=== PATIENT | female | born 1940 | race Caucasian/White ===

== ENCOUNTER 2025-07-11 15:54 | Inpatient (IN) ==
[2025-07-11] MEDS ORDERED: PROTONIX INJ 40 MG VIAL ONE (16:08)
[2025-07-11] MEDS ORDERED: ZOFRAN INJ 4 MG VIAL ONE (16:08)
[2025-07-11] MEDS: NS 1,000 ML IV 1,000 ML IV ONE ×3 (16:09→19:31)
[2025-07-11] MEDS: ZOFRAN INJ 4 MG VIAL IVP ONE (16:10)
[2025-07-11] MEDS: PROTONIX INJ 40 MG VIAL IVP ONE (16:11)
[2025-07-11 16:31] LABS: MEAN PLATELET VOLUME 7.5 fL (7.4-11.0); RED CELL DISTRIBUTION WIDTH 12.8 % (11.6-16.5)
[2025-07-11 16:40] LABS: COR NA(FOR HYPERGLY) 142 mmol/L (136-145); CREATININE 1.02 mg/dL (0.55-1.02); eGFR NON BLACK RACES 55 (>60)
--- NOTE | 2025-07-11 16:40 | DR.GENAD ---
HPI Time Seen Time Seen by Provider: 07/11/25 16:38 PCP Primary Care Physician: JUANIS URENA Complaint/Symptoms Chief Complaint Doctors Comments: To family members they went to see her this morning about 6:30 in the morningHere for her medications and they found her in the bathroom vomiting and diarrhea with some epigastric pain.This patient has a history of dementia but refuses to stay anywhere besides by herself. Chief Complaint:: Family member states they went there around 0630 this morning to give her, her medications and found her in the bathroom vomiting and diarrhea along with epigastric pain. Patient has dementia and lives alone unsure of what time it started. COVID-19 Coronavirus risk:travel/contact w/high risk person: No Has patient experienced Coronavirus symptoms: No Source History Provided: Patient Mode of Arrival Mode of Arrival: Wheelchair Timing Onset of Chief Complaint: 07/11/25 PMH PMH Past Medical History: Yes Past Medical History: Dementia and Hypertension Past Surgical History: Yes Surgical History: Tonsillectomy Family History History of Family Medical Conditions: No Social History Does patient currently use any type of tobacco product: No Have you used tobacco products in the last 12 months: No Type of Tobacco Use: None Does any household member use tobacco: No Alcohol Use: None Do you use any recreational Drugs:: No Lives With: Alone Lives Where: Home Travel Risk Coronavirus risk:travel/contact w/high risk person: No Has patient experienced Coronavirus symptoms: No Infectious screening In the last 2 months have you had wt loss of >10#?: NO Have you had fever, night sweats or hemotysis?: No Have you traveled outside the country in the last 6 months?: No Isolation: Standard ROS Review of Systems Constitutional: Weakness and Other (nausea and vomiting and mid lower abdominal pain.) Eyes: No Symptoms Reported ENTM: No Symptoms Reported Respiratoy: No Symptoms Reported Cardiovascular: No Symptoms Reported Gastrointestinal/Abdominal: Abdominal Pain, Nausea and Vomiting Genitourinary: Other (suprapubic abdominal pain) Neurological: No Symptoms Reported Musculoskeletal: No Symptoms Reported Integumentary: No Symptoms Reported Hematologic/Lymphatic: No Symptoms Reported Endocrine: No Symptoms Reported Psychiatric: No Symptoms Reported All Other Systems: Reviewed and Negative PE Vital Signs Vitals: Vital Signs Temperature 98.0 F Pulse Rate 97 Pulse Rate 101 Pulse Rate 96 Pulse Rate 92 Pulse Rate 100 Pulse Rate 95 Pulse Rate 108 Pulse Rate 96 Pulse Rate 89 Pulse Rate 100 Pulse Rate 89 Pulse Rate 90 Pulse Rate 88 Pulse Rate 87 Pulse Rate 77 Pulse Rate 96 Respiratory Rate 24 Respiratory Rate 23 Respiratory Rate 23 Respiratory Rate 25 Respiratory Rate 24 Respiratory Rate 22 Respiratory Rate 32 Respiratory Rate 25 Respiratory Rate 22 Respiratory Rate 26 Respiratory Rate 16 Blood Pressure 177/81 Blood Pressure 187/81 Blood Pressure 199/77 Blood Pressure 161/72 Blood Pressure 167/75 Blood Pressure 190/78 Blood Pressure 173/71 Blood Pressure 171/107 Blood Pressure 175/79 O2 Sat by Pulse Oximetry 97 O2 Sat by Pulse Oximetry 98 O2 Sat by Pulse Oximetry 97 O2 Sat by Pulse Oximetry 98 O2 Sat by Pulse Oximetry 98 O2 Sat by Pulse Oximetry 99 O2 Sat by Pulse Oximetry 98 O2 Sat by Pulse Oximetry 97 O2 Sat by Pulse Oximetry 92 O2 Sat by Pulse Oximetry 97 O2 Sat by Pulse Oximetry 98 O2 Sat by Pulse Oximetry 99 O2 Sat by Pulse Oximetry 98 O2 Sat by Pulse Oximetry 98 O2 Sat by Pulse Oximetry 99 O2 Sat by Pulse Oximetry 96 O2 Sat by Pulse Oximetry 97 General Limitations: Physical Limitation (unstable gait due to abdominal pain) General Appearance: In Distress (moderate distress) Head Head Exam: Normal Inspection, Atraumatic and Normocephalic Eyes Eye exam: Normal Appearance, PERRL and EOMI ENT ENT Exam: Normal Exam, Normal Oropharynx and Normal External Ear Exam External Ear Exam: Normal External Inspection TM/Canal Exam: Bilateral: Normal Nose Exam: Normal Nose Exam Mouth Exam: Normal Inspection Throat Exam: Normal Inspection Neck Neck Exam: Normal Inspection Chest Chest Inspection: Normal Inspection and Symmetric Chest Wall Rise Respiratory Respiratory Exam: Normal Lung Sounds Bilat Respiratory Exam: Bilateral: Clear to Auscultation Cardiovascular Cardiovascular Exam: Regular Rate and Normal Rhythm Abdominal Exam Abdominal Exam: Normal Inspection, Normal Bowel Sounds, Soft and Tenderness (suprapubic area) Abdominal Tenderness: Suprapubic Extremities Extremities Exam: Normal Inspection Back Back Exam: Normal Inspection Neurologic Neurological Exam: Alert, Oriented X3 and CN II-XII Intact Psychiatric Psychiatric Exam: Normal Affect Skin Skin Exam: Warm, Dry and Intact MDM Differential Diagnosis Differential Diagnosis: uti,gastritis,cholelithiasis,pancreatitis,gerd COURSE Treatment Treatment: Patient remained relatively stable during ER evaluation. 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 Serrano at 1905 and he is able to put the patient in for further evaluation make her n.p.o. given fluids and she does have a urinary tract infection so we did give her a levofloxacin 500 mg IV and will be given levofloxacin 500 mg IV every 24. Further antibiotic therapy as per Dr. Henry if he wants to cover for any of the intra-abdominal pathology.Patient is allergic to penicillins.This patient was given 1 g of Tylenol IV for pain the family members did not want her to get any of the narcotics that she they stated that she does not do well with that.Case management was notified and they did set the patient up with put in as an inpatient. [facility] Labs Reviewed Laboratory Results Reviewed?: Yes 07/11/25 16:03 07/11/25 16:03 Laboratory: WBC 14.3 X10^3/uL (3.6-10.0) H 07/11/25 16:03 RBC 4.14 X10^6/uL (3.5-5.4) 07/11/25 16:03 Hgb 13.1 g/dL (12.0-16.0) 07/11/25 16:03 Hct 38.3 % (36.0-47.0) 07/11/25 16:03 MCV 92.6 fL (80.0-100.0) 07/11/25 16:03 MCH 31.8 pg (27.0-34.0) 07/11/25 16:03 MCHC 34.3 g/dL (33.0-35.0) 07/11/25 16:03 RDW 12.8 % (11.6-16.5) 07/11/25 16:03 Plt Count 351 X10^3/uL (150.0-450.0) 07/11/25 16:03 Plt Count Comment Adequate (ADEQUATE) 07/11/25 16:03 MPV 7.5 fL (7.4-11.0) 07/11/25 16:03 Neut % (Auto) 92.6 % (42.0-75.0) H 07/11/25 16:03 Lymph % (Auto) 2.5 % (21.0-51.0) L 07/11/25 16:03 Sullivan % (Auto) 4.6 % (0.0-13.0) 07/11/25 16:03 Eos % (Auto) 0.0 % (0.9-2.9) L 07/11/25 16:03 Baso % (Auto) 0.3 % (0.2-1.0) 07/11/25 16:03 Neut # (Auto) 13.2 x10^3/uL (2.2-4.8) H 07/11/25 16:03 Lymph # (Auto) 0.4 X10^3/uL (1.3-2.9) L 07/11/25 16:03 Sullivan # (Auto) 0.7 x10^3/uL (0.3-0.8) 07/11/25 16:03 Eos # (Auto) 0.0 x10^3/uL (0.0-0.2) 07/11/25 16:03 Baso # (Auto) 0.0 X10^3/uL (0.0-0.1) 07/11/25 16:03 Absolute Nucleated RBC 0.0 /100WBC 07/11/25 16:03 Total Counted 100 07/11/25 16:03 Neutrophils % (Manual) 95 % (39-76) H 07/11/25 16:03 Lymphocytes % (Manual) 2 % (13-43) L 07/11/25 16:03 Monocytes % (Manual) 3 % (4-9) L 07/11/25 16:03 Plt Morphology Comment Normal (NORMAL) 07/11/25 16:03 RBC Morphology Normal (NORMAL) 07/11/25 16:03 Sodium 139 mmol/L (136-145) 07/11/25 16:03 Corrected Sodium 142 mmol/L (136-145) 07/11/25 16:03 Potassium 4.2 mmol/L (3.5-5.1) 07/11/25 16:03 Chloride 101 mmol/L (98-107) 07/11/25 16:03 Carbon Dioxide 28.1 mmol/L (21-32) 07/11/25 16:03 BUN 45 mg/dL (7-18) H 07/11/25 16:03 Creatinine 1.02 mg/dL (0.55-1.02) 07/11/25 16:03 Est GFR (MDRD) Af Amer > 60 (>60) 07/11/25 16:03 Est GFR (MDRD) Non-Af 55 (>60) L 07/11/25 16:03 Glucose 210 mg/dL (65-99) H 07/11/25 16:03 Calcium 9.1 mg/dL (8.5-10.1) 07/11/25 16:03 Corrected Calcium TNP 07/11/25 16:03 Total Bilirubin 0.50 mg/dL (0.2-1.0) 07/11/25 16:03 AST 20 Units/L (15-37) 07/11/25 16:03 ALT 18 Units/L (12-78) 07/11/25 16:03 Alkaline Phosphatase 58 Units/L (46-116) 07/11/25 16:03 Total Protein 7.8 g/dL (6.4-8.2) 07/11/25 16:03 Albumin 4.2 g/dL (3.4-5.0) 07/11/25 16:03 Globulin 3.6 g/dL (2.5-4.5) 07/11/25 16:03 Albumin/Globulin Ratio 1.2 Ratio (1.1-2.1) 07/11/25 16:03 Amylase 1902 Units/L (25-115) H 07/11/25 16:03 Lipase 3479 Units/L (16-77) H 07/11/25 16:03 Specimen Type Catherized urine 07/11/25 18:10 Urine Color Yellow (YELLOW) 07/11/25 18:10 Urine Appearance Hazy (CLEAR) 07/11/25 18:10 Urine pH 6.0 (5.0 - 8.0) 07/11/25 18:10 Ur Specific Banks 1.025 (1.000-1.030) 07/11/25 18:10 Urine Protein 2+ (NEGATIVE) 07/11/25 18:10 Urine Glucose (UA) Negative (NEGATIVE) 07/11/25 18:10 Urine Ketones 1+ (NEGATIVE) 07/11/25 18:10 Urine Blood 3+ (NEGATIVE) 07/11/25 18:10 Urine Nitrite Negative (NEGATIVE) 07/11/25 18:10 Urine Bilirubin Negative (NEGATIVE) 07/11/25 18:10 Urine Urobilinogen Normal (NORMAL) 07/11/25 18:10 Ur Leukocyte Esterase 2+ (NEGATIVE) 07/11/25 18:10 Urine RBC 0-2 /HPF (0-3) 07/11/25 18:10 Urine WBC 10-20 /HPF (0-5) A 07/11/25 18:10 Ur Squamous Epith Cells Negative /HPF (NEGATIVE) 07/11/25 18:10 Ur Renal Epithelial Cell Few /HPF (NEGATIVE) 07/11/25 18:10 Amorphous Sediment 2+ /HPF (NEGATIVE) 07/11/25 18:10 Urine Bacteria 1+ /HPF (NEGATIVE) 07/11/25 18:10 Coarse Granular Casts Few /HPF (NEGATIVE) 07/11/25 18:10 Ur Culture Indicated? Yes/culture set up 07/11/25 18:10 Opioid Opioid Risk Tool Age (Luis box if 16-45): No History of Preadolescent Sexual Abuse: No Total: 0 Total Score Risk Category: Low Risk Copyright: Erlin ALSTON predicting aberrant behaviors Discharge Plan Diagnosis Discharge Problem: Cholelithiasis, Pancreatitis, UTI (urinary tract infection), Constipation Discharge Plan Patient Disposition: ADMITTED INPATIENT Condition: Stable Prescriptions: No Action donepezil 5 mg tablet 5 mg PO QDAY meloxicam 15 mg tablet 15 mg PO QDAY lisinopril 10 mg tablet 10 mg PO BID Health Concerns: Post Hospitalization: new medications and changes needed to prevent readmission or further decline. Pt educated and given instructions on all concerns. Plan of Treatment: Continue with present treatment and follow up plan. Pt is to keep follow up appointment as instructed and take medications as ordered. Orders to Discharge Patient Discharge Orders: Transfer (Routine); Ordered 07/11/25 Ordered By: Fuad Brown Follow ups/Referrals Follow ups/Referrals: ,Misc [Primary Care Provider] - 3 days Instructions Stand Alone Forms: Find Help Web Site, Post Hospital Follow Up Care Print Language: PORTUGUESE
[2025-07-11 16:45] LABS: PLATELET MORPHOLOGY COMMENT NORMAL (NORMAL)
[2025-07-11 18:31] LABS: BLOOD/HEMOGLOBIN,URINE 3+ (NEGATIVE); LEUKOCYTE ESTERASE ,URINE 2+ (NEGATIVE); NITRITES,URINE NEGATIVE (NEGATIVE)
--- NOTE | 2025-07-11 18:31 | CT ---
EXAM: CT ABDOMEN AND PELVIS WITHOUT INTRAVENOUS CONTRAST HISTORY: Abdominal pain. TECHNIQUE: Spiral axial CT images are obtained through the abdomen and pelvis without the administration of oral contrast and intravenous contrast. Additional coronal and sagittal reformatted images are reconstructed. COMPARISON: None available. FINDINGS: BILIARY SYSTEM: There is cholelithiasis, consistent with sequela of chronic cholecystitis. Consider follow-up evaluation with HIDA scan to rule out cystic duct obstruction and acute cholecystitis as clinically warranted. PANCREAS: There is evidence for acute pancreatitis (cannot rule out gallstone pancreatitis) marked by pancreatic enlargement and peripancreatic streaky inflammatory change. No evidence for pancreatic pseudocyst formation is seen. There is a contiguous peripancreatic interstitial fluid tracking along the posterior peritoneal reflections and paracolic gutters towards the lower abdomen (left greater than right), in keeping with sequela of acute pancreatitis. There is contiguous small perihepatic and perisplenic ascites. There is severe edema of the transverse mesocolon (contiguous with the inferior margin of the pancreas) in keeping with secondary postinflammatory change/edema. GASTROINTESTINAL TRACT: There is thickened appearance of the gastric mucosa and duodenal sweep in keeping with secondary gastroduodenitis. Colonic diverticulosis, without evidence for diverticulitis. No evidence for hiatal hernia, bowel herniation, bowel obstruction, or colitis. A normal-appearing appendix is seen. A massive amount of fecal material is seen within and up to 8.2 cm dilated rectum consistent with constipation and fecal retention. Axial image 77; sagittal image 29. GENITOURINARY SYSTEM: The kidneys are unremarkable. There is no ureteral calculus or stigmata of obstructive uropathy. The urinary bladder is grossly unremarkable for a non-dedicated exam. REPRODUCTIVE SYSTEM: The uterus and adnexa appear grossly unremarkable for a CT scan. Consider follow-up dedicated imaging as clinically warranted. VASCULAR: There is severe aortoiliac atherosclerotic disease, without aneurysm formation or dissection. CT ABDOMEN: The liver, spleen, adrenal glands, and inferior vena cava are within normal limits for a CT scan. There is no intra-abdominal or retroperitoneal lymphadenopathy, or free air seen. No abdominal herniation is noted. CT PELVIS: No pelvic sidewall or inguinal lymphadenopathy is seen. No inguinal herniation is noted. No free air is seen. A small amount of free fluid is seen in the pelvis, presumed sequela of pancreatitis. BONES AND JOINTS: Severe multilevel DDD is seen in the distal thoracic and lumbar spine. L2/3: Diffuse posterior degenerative disc bulge (projecting 5.2 mm AP) encroaching upon the anterior spinal canal and lateral recesses with potential for L3 nerve root impingements. L3/4: Severe DDD with prominent posterior disc bulge/HNP (projecting 1.2 cm AP and encroaching upon the anterior spinal canal and lateral recesses), and together with severe bilateral hypertrophic facet joint DJD contributing to severe lateral recess, spinal canal, and neuroforaminal stenoses with L4 and L3 nerve root impingements. Sagittal image 34; axial image 46. L4/5: Severe DDD marked by severe disc space narrowing, endplate sclerosis, vacuum disc phenomenon, and chronic appearing anterior disc bulge/HNP (projecting 1.5 cm AP and encroaching upon the prevertebral soft tissues); approximately 11.9 mm (grade 1) spondylolisthesis, contributing to markedly severe spinal canal and neuroforaminal stenosis with severe impingements of the L5 and L4 nerve roots. Sagittal image 27-39; axial image 50-54. LUNG BASES: There is severe diffuse coronary atherosclerosis. A trace pericardial effusion is seen. Cardiomegaly and diffusely prominent pulmonary vascularity and interstitial markings, consistent with mild CHF or volume overload in the appropriate clinical setting. Clinical correlation is advised and appropriate follow-up evaluation is recommended. IMPRESSION: 1. Cholelithiasis, consistent with sequela of chronic cholecystitis. Consider follow-up evaluation with HIDA scan to rule out cystic duct obstruction and acute cholecystitis as clinically warranted. 2. Evidence for acute pancreatitis (cannot rule out gallstone pancreatitis) marked by pancreatic enlargement and peripancreatic streaky inflammatory change. 3. Contiguous peripancreatic interstitial fluid tracking along the posterior peritoneal reflections and paracolic gutters towards the lower abdomen (left greater than right), in keeping with sequela of acute pancreatitis. 4. Contiguous small perihepatic and perisplenic ascites. 5. Severe edema of the transverse mesocolon (contiguous with the inferior margin of the pancreas) in keeping with secondary postinflammatory change/edema. 6. Thickened appearance of the gastric mucosa and duodenal sweep in keeping with secondary gastroduodenitis. 7. Colonic diverticulosis, without evidence for diverticulitis. 8. No evidence for hiatal hernia, bowel herniation, bowel obstruction, appendicitis or colitis. 9. Massive amount of fecal material is seen within and up to 8.2 cm dilated rectum consistent with constipation and fecal retention. Axial image 77; sagittal image 29. 10. No evidence for renal stone disease or obstructive uropathy. 11. No free air, mass lesions, or lymphadenopathy seen. 12. L2/3: Diffuse posterior degenerative disc bulge (projecting 5.2 mm AP) encroaching upon the anterior spinal canal and lateral recesses with potential for L3 nerve root impingements. 13. L3/4: Severe DDD with prominent posterior disc bulge/HNP (projecting 1.2 cm AP and encroaching upon the anterior spinal canal and lateral recesses), and together with severe bilateral hypertrophic facet joint DJD contributing to severe lateral recess, spinal canal, and neuroforaminal stenoses with L4 and L3 nerve root impingements. Sagittal image 34; axial image 46. 14. L4/5: Severe DDD and chronic appearing anterior disc bulge/HNP (projecting 1.5 cm AP and encroaching upon the prevertebral soft tissues); approximately 11.9 mm (grade 1) spondylolisthesis, contributing to markedly severe spinal canal and neuroforaminal stenosis with severe impingements of the L5 and L4 nerve roots. Sagittal image 27-39; axial image 50-54. 15. Severe diffuse coronary atherosclerosis. 16. Cardiomegaly and diffusely prominent pulmonary vascularity and interstitial markings, consistent with mild CHF or volume overload in the appropriate clinical setting. Clinical correlation is advised and appropriate follow-up evaluation is recommended. THIS IS AN ELECTRONICALLY VERIFIED FINAL REPORT 07/11/2025 6:27 PM - Electronically signed by Ashish Bishop MD
[2025-07-11 18:35] LABS: APPEARANCE,URINE HAZY (CLEAR)
[2025-07-11 18:55] LABS: SQUAMOUS EPITHELIAL CELL,UR NEGATIVE /HPF (NEGATIVE)
[2025-07-11 18:56] LABS: COARSE GRANULAR CASTS,URINE FEW /HPF (NEGATIVE)
[2025-07-11] MEDS ORDERED: NS 1,000 ML IV 1,000 ML ONE (19:19)
[2025-07-11] MEDS: MORPHINE SULFATE INJ 2 MG INJ IVP ONE (19:25)
[2025-07-11] MEDS: OFIRMEV IV 1000 MG VIAL 1,000 MG/100 ML VIAL IV ONE (19:35)
[2025-07-11] MEDS: APRESOLINE INJ 20 MG VIAL IVP ONE (19:42)
[2025-07-11] MEDS ORDERED: LEVAQUIN PREMIX IV 500 MG 500 MG/100 ML BAG IV ONE (20:09)
[2025-07-11] MEDS: LEVAQUIN PREMIX IV 500 MG 500 MG/100 ML BAG IV ONE (20:13)
[2025-07-11] MEDS: LEVAQUIN PREMIX IV 500 MG 500 MG/100 ML BAG IV SCH (21:37)
[2025-07-11] MEDS: NS 1,000 ML IV 1,000 ML IV SCH (21:37)
[2025-07-11] MEDS: MORPHINE SULFATE INJ 2 MG INJ IVP PRN (21:49)
[2025-07-11] MEDS: ZOFRAN INJ 4 MG VIAL IVP PRN (21:51)
[2025-07-12] MEDS: MORPHINE SULFATE INJ 2 MG INJ IVP PRN (01:11)
[2025-07-12] MEDS: ZOFRAN INJ 4 MG VIAL IVP PRN (01:11)
[2025-07-12] MEDS: APRESOLINE INJ 20 MG VIAL IVP PRN (04:49)
[2025-07-12 04:59] LABS: MEAN PLATELET VOLUME 7.5 fL (7.4-11.0); RED CELL DISTRIBUTION WIDTH 13.0 % (11.6-16.5)
[2025-07-12 05:16] LABS: COR NA(FOR HYPERGLY) 144 mmol/L (136-145); CREATININE 0.85 mg/dL (0.55-1.02); eGFR NON BLACK RACES > 60 (>60)
--- NOTE | 2025-07-12 09:34 | DR.H&P ---
H&P History & Physical for Day of: H&P Date: 07/11/25 Chief Complaint Chief Complaint: abdominal pain, n/v/d, weakness History of Present Illness History of Present Illness: Pt is 85 WF, ER admission with co that a family member went there around 0630 this morning to give her, her medications and found her in the bathroom vomiting and diarrhea along with epigastric pain. Patient has mild dementia and lives alone unsure of what time it started. Unsure if pt had a fall or syncope. Pt has PMH of COPD, HTN, OA and mild vascular dementia. Pt had acute pancreatitis with cholelithiasis. Pt admitted for evaluation and treatment of acute illness. Past Medical History Past Medical History: Dementia and Hypertension Past Surgical History Surgical History: Tonsillectomy Family History Family Medical History: Hypertension Social History Does patient currently use any type of tobacco product: No Have you used tobacco products in the last 12 months: No Type of Tobacco Use: None Does any household member use tobacco: No Alcohol Use: None Medications Home Medications: Home Medications Medication Instructions Recorded Confirmed Type donepezil 5 mg tablet 5 mg PO QDAY 07/11/25 History lisinopril 10 mg tablet 10 mg PO BID 07/11/25 History meloxicam 15 mg tablet 15 mg PO QDAY 07/11/2507/11 History Allergies Allergies Allergy/AdvReac Type Severity Reaction Status Date / Time aspirin Allergy Verified 07/11/25 18:41 Penicillins Allergy Verified 07/11/25 16:02 Labs 07/12/25 04:30 07/12/25 04:30 Labs: Laboratory WBC 17.9 X10^3/uL (3.6-10.0) H 07/12/25 04:30 RBC 4.00 X10^6/uL (3.5-5.4) 07/12/25 04:30 Hgb 12.7 g/dL (12.0-16.0) 07/12/25 04:30 Hct 36.7 % (36.0-47.0) 07/12/25 04:30 MCV 91.8 fL (80.0-100.0) 07/12/25 04:30 MCH 31.8 pg (27.0-34.0) 07/12/25 04:30 MCHC 34.7 g/dL (33.0-35.0) 07/12/25 04:30 RDW 13.0 % (11.6-16.5) 07/12/25 04:30 Plt Count 315 X10^3/uL (150.0-450.0) 07/12/25 04:30 Plt Count Comment Adequate (ADEQUATE) 07/11/25 16:03 MPV 7.5 fL (7.4-11.0) 07/12/25 04:30 Neut % (Auto) 86.3 % (42.0-75.0) H 07/12/25 04:30 Lymph % (Auto) 4.2 % (21.0-51.0) L 07/12/25 04:30 [place] % (Auto) 9.3 % (0.0-13.0) 07/12/25 04:30 Eos % (Auto) 0.0 % (0.9-2.9) L 07/12/25 04:30 Baso % (Auto) 0.2 % (0.2-1.0) 07/12/25 04:30 Neut # (Auto) 15.4 x10^3/uL (2.2-4.8) H 07/12/25 04:30 Lymph # (Auto) 0.7 X10^3/uL (1.3-2.9) L 07/12/25 04:30 [place] # (Auto) 1.7 x10^3/uL (0.3-0.8) H 07/12/25 04:30 Eos # (Auto) 0.0 x10^3/uL (0.0-0.2) 07/12/25 04:30 Baso # (Auto) 0.0 X10^3/uL (0.0-0.1) 07/12/25 04:30 Absolute Nucleated RBC 0.0 /100WBC 07/12/25 04:30 Total Counted 100 07/11/25 16:03 Neutrophils % (Manual) 95 % (39-76) H 07/11/25 16:03 Lymphocytes % (Manual) 2 % (13-43) L 07/11/25 16:03 Monocytes % (Manual) 3 % (4-9) L 07/11/25 16:03 Plt Morphology Comment Normal (NORMAL) 07/11/25 16:03 RBC Morphology Normal (NORMAL) 07/11/25 16:03 Sodium 142 mmol/L (136-145) 07/12/25 04:30 Corrected Sodium 144 mmol/L (136-145) 07/12/25 04:30 Potassium 4.0 mmol/L (3.5-5.1) 07/12/25 04:30 Chloride 107 mmol/L (98-107) 07/12/25 04:30 Carbon Dioxide 26.7 mmol/L (21-32) 07/12/25 04:30 BUN 41 mg/dL (7-18) H 07/12/25 04:30 Creatinine 0.85 mg/dL (0.55-1.02) 07/12/25 04:30 Est GFR (MDRD) Af Amer > 60 (>60) 07/12/25 04:30 Est GFR (MDRD) Non-Af > 60 (>60) 07/12/25 04:30 Glucose 165 mg/dL (65-99) H 07/12/25 04:30 Hemoglobin A1c 5.9 % 07/12/25 04:30 Calcium 8.5 mg/dL (8.5-10.1) 07/12/25 04:30 Corrected Calcium TNP 07/12/25 04:30 Total Bilirubin 0.50 mg/dL (0.2-1.0) 07/12/25 04:30 AST 36 Units/L (15-37) 07/12/25 04:30 ALT 20 Units/L (12-78) 07/12/25 04:30 Alkaline Phosphatase 50 Units/L (46-116) 07/12/25 04:30 Total Protein 7.1 g/dL (6.4-8.2) 07/12/25 04:30 Albumin 3.7 g/dL (3.4-5.0) 07/12/25 04:30 Globulin 3.4 g/dL (2.5-4.5) 07/12/25 04:30 Albumin/Globulin Ratio 1.1 Ratio (1.1-2.1) 07/12/25 04:30 Amylase 1531 Units/L (25-115) H 07/12/25 04:30 Lipase 2173 Units/L (16-77) H 07/12/25 04:30 Specimen Type Catherized urine 07/11/25 18:10 Urine Color Yellow (YELLOW) 07/11/25 18:10 Urine Appearance Hazy (CLEAR) 07/11/25 18:10 Urine pH 6.0 (5.0 - 8.0) 07/11/25 18:10 Ur Specific [place] 1.025 (1.000-1.030) 07/11/25 18:10 Urine Protein 2+ (NEGATIVE) 07/11/25 18:10 Urine Glucose (UA) Negative (NEGATIVE) 07/11/25 18:10 Urine Ketones 1+ (NEGATIVE) 07/11/25 18:10 Urine Blood 3+ (NEGATIVE) 07/11/25 18:10 Urine Nitrite Negative (NEGATIVE) 07/11/25 18:10 Urine Bilirubin Negative (NEGATIVE) 07/11/25 18:10 Urine Urobilinogen Normal (NORMAL) 07/11/25 18:10 Ur Leukocyte Esterase 2+ (NEGATIVE) 07/11/25 18:10 Urine RBC 0-2 /HPF (0-3) 07/11/25 18:10 Urine WBC 10-20 /HPF (0-5) A 07/11/25 18:10 Ur Squamous Epith Cells Negative /HPF (NEGATIVE) 07/11/25 18:10 Ur Renal Epithelial Cell Few /HPF (NEGATIVE) 07/11/25 18:10 Amorphous Sediment 2+ /HPF (NEGATIVE) 07/11/25 18:10 Urine Bacteria 1+ /HPF (NEGATIVE) 07/11/25 18:10 Coarse Granular Casts Few /HPF (NEGATIVE) 07/11/25 18:10 Ur Culture Indicated? Yes/culture set up 07/11/25 18:10 Review of Systems Constitutional: Weakness Eyes: No Symptoms Reported ENT: No Symptoms Reported Respiratory: Shortness of Breath Cardiovascular: No Symptoms Reported Gastrointestinal: Nausea, Vomiting, Abdominal Pain and Diarrhea Genitourinary: Incontinence Musculoskeletal: Back Pain Skin: No Symptoms Reported Neurological: Weakness and Confusion (increased from baseline) Physical Exam Vital Signs: Vital Signs Temperature 98.1 F Temperature 97.5 F Pulse Rate [Left Radial] 100 Pulse Rate [Left Radial] 102 Pulse Rate [Left Radial] 103 Pulse Rate [Left Radial] 103 Pulse Rate [Left Radial] 104 Pulse Rate [Left Radial] 107 Pulse Rate [Left Radial] 97 Pulse Rate [Left Radial] 95 Respiratory Rate 20 Respiratory Rate 20 Respiratory Rate 18 Respiratory Rate 18 Blood Pressure [Right Arm] 159/70 Blood Pressure [Right Arm] 145/65 Blood Pressure [Right Arm] 148/65 Blood Pressure [Right Arm] 154/68 Blood Pressure [Right Arm] 148/60 Blood Pressure [Right Arm] 151/68 Blood Pressure [Right Arm] 158/68 Blood Pressure [Right Arm] 183/73 Blood Pressure [Right Arm] 182/90 Blood Pressure [Right Arm] 156/58 O2 Sat by Pulse Oximetry 96 O2 Sat by Pulse Oximetry 97 Oriented: Person Eyes: Normal Ear: Normal Nose: Normal Throat: Dry Respiratory: RLL Diminished and LLL Diminished : Frequency Auscultation: Bowel Sounds: Increased Palpation: negative Mass Pulsatile Tenderness: Diffuse Skin: Decreased Turgur Musculoskeletal: Hip and Motor Deficit Psychiatric: Anxiety Mood Description: Anxious Affect: Anxious Speech Pattern: Clear and Appropriate (pt has mild dementia with short term memory impairment. pt is poor historian for acute event) Assessment/Plan (1) Pancreatitis: Status: Acute Plan: PT ADMITTED NPO, SURGICAL CONSULT WITH DR BARBOSA IV HYDRATION PAIN CONTROL BP CONTROL, VERIFY HOME MEDICATIONS US, MRCP SET UP, IV ATBX THERAPY (2) Cholelithiasis: Status: Acute (3) UTI (urinary tract infection): Status: Acute (4) Constipation: Status: Acute (5) Hypertensive urgency: Status: Acute (6) COPD (chronic obstructive pulmonary disease): Status: Acute
[2025-07-12] MEDS: PROTONIX INJ 40 MG VIAL IVP SCH (09:40)
[2025-07-12] MEDS: ZESTRIL TAB 10 MG PO SCH (09:42)
[2025-07-12] MEDS: LOVENOX INJ 40 MG SYR SC SCH (09:42)
--- NOTE | 2025-07-12 09:42 | EKG ---
Test Reason : hx hypertensive urgency Blood Pressure : */* mmHG Vent. Rate : 94 BPM Atrial Rate : 94 BPM P-R Int : 158 ms QRS Dur : 98 ms QT Int : 374 ms P-R-T Axes : 74 -17 55 degrees QTc Int : 467 ms Sinus rhythm with premature atrial complexes Incomplete right bundle branch block Borderline ECG No previous ECGs available Confirmed by Dylan Argueta MD ([id number]) on 07/13/2025 7:08:35 AM Referred By: Confirmed By: Dylan Argueta MD
[2025-07-12] MEDS: DULCOLAX SUPPOSITORY 10 MG RECTAL ONE (12:26)
--- NOTE | 2025-07-12 13:15 | RAD ---
EXAM: CHEST, 1 VIEW HISTORY: SOB; COMPARISON: None FINDINGS: The cardiomediastinal silhouette is prominent. Chronic appearing interstitial changes in the lungs. No acute airspace disease. No pneumothorax or effusion. No acute osseous abnormality. IMPRESSION: No acute cardiopulmonary disease. THIS IS AN ELECTRONICALLY VERIFIED FINAL REPORT 07/12/2025 1:11 PM - Electronically signed by Ted Lao MD
[2025-07-12] MEDS: DILAUDID INJ IVP PRN (15:14)
[2025-07-12] MEDS: FLEET ENEMA ADULT PR ONE (15:50)
[2025-07-13] MEDS: NS 1,000 ML IV 1,000 ML IV SCH (04:21)
[2025-07-13 04:58] LABS: MEAN PLATELET VOLUME 7.4 fL (7.4-11.0); RED CELL DISTRIBUTION WIDTH 13.3 % (11.6-16.5)
[2025-07-13 05:10] LABS: CREATININE 0.85 mg/dL (0.55-1.02); eGFR NON BLACK RACES > 60 (>60)
[2025-07-13 05:21] LABS: PLATELET MORPHOLOGY COMMENT NORMAL (NORMAL)
[2025-07-13 05:26] LABS: COR CA(FOR HYPOALB) 8.9 mg/dL (8.5-10.1); COR NA(FOR HYPERGLY) 144 mmol/L (136-145)
[2025-07-13] MEDS ORDERED: CONSULT PHARMACY - POTASSIUM & MAGNESIUM XX SCH ×2 (06:00)
[2025-07-13] MEDS: K-DUR TAB 20 MEQ PO SCH (08:55)
--- NOTE | 2025-07-13 11:17 | RAD ---
EXAM: KUB HISTORY: constipation; pt c/o constipation, n/v x2 days COMPARISON: CT of the abdomen and pelvis without contrast July 11, 2025 TECHNIQUE: KUB one-view FINDINGS: Advanced, multilevel degenerative changes of the thoracolumbar spine. Fecal ball is noted distending the rectal vault. Mild gaseous distention of the colon along its length. Airspace opacities are present in the right lung base. Elevation of the right hemidiaphragm. No free air. Nonobstructed silhouette of the stomach. Small bowel is not distended. IMPRESSION: Moderate fecal ball impacting the rectal vault resulting in colonic ileus. Disimpaction suggested. THIS IS AN ELECTRONICALLY VERIFIED FINAL REPORT 07/13/2025 11:14 AM - Electronically signed by Coleman Rogers MD
--- NOTE | 2025-07-13 16:12 | DR.PROGNOT ---
HOSPITAL PROGRESS NOTE Progress Note for Day of: Progress Note Date: 07/13/25 Chief Complaint Chief Complaint: still having abdominal pain and nausea . WBC is higher 24.7 . LFT and Biliru all normal .BUN 35, normal CREAt, Amylase 773, Lipase 522. K 3.2. afebrile , soft abdomen with diffuse tenderness . BS still hypoactive . Past Medical Family Social History Past Med/Fam/Surg Hx: No changes since H&P Allergies: Allergies aspirin Allergy (Verified 07/11/25 18:41) Penicillins Allergy (Verified 07/11/25 16:02) Review Of Systems ROS: No change since H&P Vital Signs Vital Signs: Vital Signs Temperature 98.8 F Temperature 98.2 F Pulse Rate [Left Radial] 98 Pulse Rate [Left Radial] 97 Respiratory Rate 17 Respiratory Rate 19 Respiratory Rate 19 Respiratory Rate 18 Respiratory Rate 18 Blood Pressure [Right Arm] 125/57 Blood Pressure [Right Arm] 126/59 O2 Sat by Pulse Oximetry 92 O2 Sat by Pulse Oximetry 92 Physical Exam Oriented: Person Eyes: Normal Ear: Normal Nose: Normal Throat: Dry : Frequency GI:Auscultation: Decreased GI:Palpation: negative Mass Pulsatile GI: Tenderness: Diffuse Skin: Decreased Turgur Musculoskeletal: Hip and Motor Deficit Psychiatric: Anxiety Mood Description: Anxious Affect: Anxious Speech Pattern: Clear and Appropriate Laboratory and Diagnostics 07/13/25 04:42 07/13/25 04:42 Labs: 07/11/25 18:10 Urine,Catheterized Urine Culture - Final Laboratory WBC 24.7 X10^3/uL (3.6-10.0) H 07/13/25 04:42 RBC 3.81 X10^6/uL (3.5-5.4) 07/13/25 04:42 Hgb 12.0 g/dL (12.0-16.0) 07/13/25 04:42 Hct 35.0 % (36.0-47.0) L 07/13/25 04:42 MCV 91.9 fL (80.0-100.0) 07/13/25 04:42 MCH 31.5 pg (27.0-34.0) 07/13/25 04:42 MCHC 34.3 g/dL (33.0-35.0) 07/13/25 04:42 RDW 13.3 % (11.6-16.5) 07/13/25 04:42 Plt Count 280 X10^3/uL (150.0-450.0) 07/13/25 04:42 Plt Count Comment Adequate (ADEQUATE) 07/13/25 04:42 MPV 7.4 fL (7.4-11.0) 07/13/25 04:42 Neut % (Auto) 88.2 % (42.0-75.0) H 07/13/25 04:42 Lymph % (Auto) 3.2 % (21.0-51.0) L 07/13/25 04:42 [place] % (Auto) 8.6 % (0.0-13.0) 07/13/25 04:42 Eos % (Auto) 0.0 % (0.9-2.9) L 07/13/25 04:42 Baso % (Auto) 0 % (0.2-1.0) L 07/13/25 04:42 Neut # (Auto) 21.8 x10^3/uL (2.2-4.8) H 07/13/25 04:42 Lymph # (Auto) 0.8 X10^3/uL (1.3-2.9) L 07/13/25 04:42 [place] # (Auto) 2.1 x10^3/uL (0.3-0.8) H 07/13/25 04:42 Eos # (Auto) 0.0 x10^3/uL (0.0-0.2) 07/13/25 04:42 Baso # (Auto) 0.0 X10^3/uL (0.0-0.1) 07/13/25 04:42 Absolute Nucleated RBC 0.1 /100WBC 07/13/25 04:42 Total Counted 100 07/13/25 04:42 Neutrophils % (Manual) 89 % (39-76) H 07/13/25 04:42 Lymphocytes % (Manual) 4 % (13-43) L 07/13/25 04:42 Monocytes % (Manual) 7 % (4-9) 07/13/25 04:42 Plt Morphology Comment Normal (NORMAL) 07/13/25 04:42 RBC Morphology Normal (NORMAL) 07/13/25 04:42 Sodium 142 mmol/L (136-145) 07/13/25 04:42 Corrected Sodium 144 mmol/L (136-145) 07/13/25 04:42 Potassium 3.2 mmol/L (3.5-5.1) L 07/13/25 04:42 Chloride 106 mmol/L (98-107) 07/13/25 04:42 Carbon Dioxide 26.6 mmol/L (21-32) 07/13/25 04:42 BUN 35 mg/dL (7-18) H 07/13/25 04:42 Creatinine 0.85 mg/dL (0.55-1.02) 07/13/25 04:42 Est GFR (MDRD) Af Amer > 60 (>60) 07/13/25 04:42 Est GFR (MDRD) Non-Af > 60 (>60) 07/13/25 04:42 Glucose 173 mg/dL (65-99) H 07/13/25 04:42 Hemoglobin A1c 5.9 % 07/12/25 04:30 Lactic Acid 0.9 mmol/L (0.4-2.0) 07/13/25 08:10 Calcium 8.2 mg/dL (8.5-10.1) L 07/13/25 04:42 Corrected Calcium 8.9 mg/dL (8.5-10.1) 07/13/25 04:42 Magnesium 2.0 mg/dL (2.0-2.9) 07/13/25 04:42 Total Bilirubin 0.60 mg/dL (0.2-1.0) 07/13/25 04:42 AST 50 Units/L (15-37) H 07/13/25 04:42 ALT 21 Units/L (12-78) 07/13/25 04:42 Alkaline Phosphatase 51 Units/L (46-116) 07/13/25 04:42 Total Protein 6.4 g/dL (6.4-8.2) 07/13/25 04:42 Albumin 3.1 g/dL (3.4-5.0) L 07/13/25 04:42 Globulin 3.3 g/dL (2.5-4.5) 07/13/25 04:42 Albumin/Globulin Ratio 0.9 Ratio (1.1-2.1) L 07/13/25 04:42 Amylase 773 Units/L (25-115) H 07/13/25 04:42 Lipase 572 Units/L (16-77) H 07/13/25 04:42 Specimen Type Catherized urine 07/11/25 18:10 Urine Color Yellow (YELLOW) 07/11/25 18:10 Urine Appearance Hazy (CLEAR) 07/11/25 18:10 Urine pH 6.0 (5.0 - 8.0) 07/11/25 18:10 Ur Specific [place] 1.025 (1.000-1.030) 07/11/25 18:10 Urine Protein 2+ (NEGATIVE) 07/11/25 18:10 Urine Glucose (UA) Negative (NEGATIVE) 07/11/25 18:10 Urine Ketones 1+ (NEGATIVE) 07/11/25 18:10 Urine Blood 3+ (NEGATIVE) 07/11/25 18:10 Urine Nitrite Negative (NEGATIVE) 07/11/25 18:10 Urine Bilirubin Negative (NEGATIVE) 07/11/25 18:10 Urine Urobilinogen Normal (NORMAL) 07/11/25 18:10 Ur Leukocyte Esterase 2+ (NEGATIVE) 07/11/25 18:10 Urine RBC 0-2 /HPF (0-3) 07/11/25 18:10 Urine WBC 10-20 /HPF (0-5) A 07/11/25 18:10 Ur Squamous Epith Cells Negative /HPF (NEGATIVE) 07/11/25 18:10 Ur Renal Epithelial Cell Few /HPF (NEGATIVE) 07/11/25 18:10 Amorphous Sediment 2+ /HPF (NEGATIVE) 07/11/25 18:10 Urine Bacteria 1+ /HPF (NEGATIVE) 07/11/25 18:10 Coarse Granular Casts Few /HPF (NEGATIVE) 07/11/25 18:10 Ur Culture Indicated? Yes/culture set up 07/11/25 18:10 Assessment and Plan 1: improving acute gallstone pancreatitis . same plan , on liquid diet . for MRCP in am 2: HTN and COPD . same medical care .DVT prophylaxis Problem Patient Problems: Patient Problems Constipation (Acute) K59.00 UTI (urinary tract infection) (Acute) N39.0 Pancreatitis (Acute) K85.90 Cholelithiasis (Acute) K80.20
[2025-07-13] MEDS: PEPCID 20 MG VIAL 20 MG in NS 50 ML IV 50 ML IV SCH (17:22)
[2025-07-13] MEDS: COLACE CAP 100 MG PO PRN (20:04)
[2025-07-13] MEDS: PROTONIX INJ 40 MG VIAL IVP SCH (20:04)
[2025-07-14] MEDS: DILAUDID INJ IVP ONE (03:46)
--- NOTE | 2025-07-14 03:49 | EKG ---
Test Reason : Tachycardia Blood Pressure : */* mmHG Vent. Rate : 154 BPM Atrial Rate : * BPM P-R Int : * ms QRS Dur : 88 ms QT Int : 286 ms P-R-T Axes : * -25 63 degrees QTc Int : 458 ms Atrial fibrillation with rapid ventricular response Nonspecific ST abnormality Abnormal ECG When compared with ECG of 12-JUL-2025 09:40, Atrial fibrillation has replaced Sinus rhythm Vent. rate has increased BY [address] now depressed in Lateral leads Confirmed by Dylan Argueta MD ([id number]) on 07/14/2025 7:18:07 AM Referred By: Confirmed By: Dylan Argueta MD
[2025-07-14] MEDS ORDERED: LOPRESSOR INJ 5 MG AMP ONE (04:02)
[2025-07-14] MEDS ORDERED: LANOXIN INJ ONE (04:02)
[2025-07-14] MEDS: LOPRESSOR INJ 5 MG AMP IVP ONE (04:07)
[2025-07-14] MEDS: LANOXIN INJ IVP SCH (04:10)
[2025-07-14] MEDS: LOPRESSOR TAB 25 MG PO SCH (04:34)
[2025-07-14 05:03] LABS: MEAN PLATELET VOLUME 7.7 fL (7.4-11.0); RED CELL DISTRIBUTION WIDTH 12.8 % (11.6-16.5)
[2025-07-14 05:12] LABS: COR CA(FOR HYPOALB) 9.3 mg/dL (8.5-10.1); COR NA(FOR HYPERGLY) 139 mmol/L (136-145); CREATININE 0.62 mg/dL (0.55-1.02); eGFR NON BLACK RACES > 60 (>60)
[2025-07-14] MEDS ORDERED: NS 100 ML IV 100 ML ONE (05:43)
[2025-07-14] MEDS: CARDIZEM INJ 50 MG VIAL IVP ONE (06:16)
[2025-07-14] MEDS: CARDIZEM INJ 125 MG VIAL 125 MG in NS 100 ML IV 100 ML IV PRN (06:19)
[2025-07-14] MEDS: CARDIZEM INJ 125 MG VIAL ONE (08:00)
--- NOTE | 2025-07-14 08:43 | EKG ---
Test Reason : afib Blood Pressure : */* mmHG Vent. Rate : 113 BPM Atrial Rate : * BPM P-R Int : * ms QRS Dur : 96 ms QT Int : 316 ms P-R-T Axes : * -11 59 degrees QTc Int : 433 ms Atrial fibrillation with rapid ventricular response Incomplete right bundle branch block Nonspecific ST abnormality Abnormal ECG When compared with ECG of 14-JUL-2025 03:47, No significant change was found Confirmed by Dylan Argueta MD ([id number]) on 07/15/2025 5:51:12 AM Referred By: Confirmed By: Dylan Argueta MD
--- NOTE | 2025-07-14 09:33 | US ---
EXAM: RIGHT UPPER QUADRANT ULTRASOUND HISTORY: CHOLELITHIASIS, PANCREATITIS; COMPARISON: CT dated 07/11/2025. TECHNIQUE: Ultrasound of the right upper quadrant was performed. Color and spectral doppler imaging was utilized. FINDINGS: Pancreas: Heterogeneous with small amount of surrounding fluid. Liver/bile ducts: Heterogeneous parenchyma. No focal liver lesion identified. No intrahepatic biliary dilatation. Common bile duct measures 4 mm. Normal hepatopetal portal venous blood flow. Gallbladder: Mildly distended gallbladder sludge with dependent shadowing gallstone and mild wall thickening. Right kidney: Unremarkable. No hydronephrosis or shadowing calculi. IMPRESSION: 1. Cholelithiasis and gallbladder sludge. Mild gallbladder wall thickening is nonspecific and may be secondary to acute or chronic cholecystitis. No biliary dilatation. 2. Heterogeneous pancreas with surrounding small amount of free fluid, compatible with history of acute pancreatitis. THIS IS AN ELECTRONICALLY VERIFIED FINAL REPORT 07/14/2025 9:29 AM - Electronically signed by Wan Lopez MD
[2025-07-14] MEDS ORDERED: CONSULT PHARMACY - POTASSIUM & MAGNESIUM XX SCH (12:00)
[2025-07-14] MEDS: MAG-OX TAB PO SCH (13:15)
[2025-07-14] MEDS: K-DUR TAB 20 MEQ PO SCH (13:16)
--- NOTE | 2025-07-14 15:01 | MRI ---
EXAM: MRI ABDOMEN WITHOUT CONTRAST WITH MRCP HISTORY: PANCREATITIS/GALLSTONES BEST IMAGES POSSIBLE, PT HAS DEMENTIA AND WAS NOT FOLLWING BREATHING INSTRUCTIONS ; . COMPARISON: Ultrasound from same date; CT dated 07/11/2025. TECHNIQUE: Using a phased-array coil, MRI of the abdomen was obtained without contrast. In addition to standard imaging, MRCP sequences were acquired including 3D reconstructions. FINDINGS: Multiple series degraded by patient motion artifact. Dependent low signal gallstones. Mild dependent gallbladder sludge. No significant gallbladder wall thickening. No biliary dilatation or evidence of biliary filling defects. Common bile duct measures 6 mm. Moderate pancreatic and peripancreatic edema with fluid extending throughout the lesser sac. No discrete organized peripancreatic fluid collection. Small volume ascites. Homogeneous liver. Unremarkable spleen, adrenals, and kidneys. Normal caliber abdominal aorta. No abnormally distended bowel loops. Small right pleural effusion. IMPRESSION: 1. Moderate motion degraded study. Cholelithiasis without evidence of cholecystitis. No biliary dilatation or evidence of choledocholithiasis. 2. Moderate pancreas and peripancreatic edema, compatible with history of acute pancreatitis. No discrete organized peripancreatic collection. 3. Small right pleural effusion. THIS IS AN ELECTRONICALLY VERIFIED FINAL REPORT 07/14/2025 2:58 PM - Electronically signed by Wan Lopez MD
[2025-07-14] MEDS ORDERED: BENADRYL INJ 50 MG VIAL ONE (15:32)
[2025-07-14] MEDS: BENADRYL INJ 50 MG VIAL IVP ONE (15:41)
--- NOTE | 2025-07-14 15:58 | DR.PROGNOT ---
HOSPITAL PROGRESS NOTE Progress Note for Day of: Progress Note Date: 07/14/25 Chief Complaint Chief Complaint: No significant abdominal pain today, no nausea or vomiting and tolerating diet well. Patient was transferred to the ICU because of acute onset of atrial fibrillation with rapid response. Gallbladder ultrasound showed gallstones and sludge. MRCP showed no evidence of choledocholithiasis. White count still elevated 20,000 with hemoglobin 11, BUN 26, normal creatinine, serum amylase 201, lipase normal now 21. Patient is afebrile Alert and cooperative Abdomen is soft with only mild diffuse tenderness, no rebound or rigidity... Past Medical Family Social History Past Med/Fam/Surg Hx: No changes since H&P Allergies: Allergies aspirin Allergy (Verified 07/11/25 18:41) Penicillins Allergy (Verified 07/11/25 16:02) Review Of Systems ROS: No change since H&P and Changes notes (describe) Vital Signs Vital Signs: Vital Signs Temperature 98.1 F Pulse Rate [Apical] 98 Pulse Rate [Apical] 102 Pulse Rate [Apical] 104 Pulse Rate [Apical] 91 Pulse Rate [Apical] 117 Pulse Rate [Apical] 110 Pulse Rate [Apical] 122 Pulse Rate 106 Respiratory Rate 24 Respiratory Rate 24 Respiratory Rate 24 Respiratory Rate 23 Respiratory Rate 19 Respiratory Rate 16 Respiratory Rate 24 Respiratory Rate 18 Respiratory Rate 20 Blood Pressure [Left Arm] 102/54 Blood Pressure [Left Arm] 128/68 Blood Pressure [Left Arm] 129/67 Blood Pressure [Left Arm] 131/58 Blood Pressure [Left Arm] 148/64 Blood Pressure [Left Arm] 127/57 Blood Pressure [Left Arm] 144/66 O2 Sat by Pulse Oximetry 92 O2 Sat by Pulse Oximetry 93 O2 Sat by Pulse Oximetry 95 O2 Sat by Pulse Oximetry 96 O2 Sat by Pulse Oximetry 92 O2 Sat by Pulse Oximetry 94 O2 Sat by Pulse Oximetry 95 Physical Exam Oriented: Person Eyes: Normal Ear: Normal Nose: Normal Throat: Dry : Frequency GI:Auscultation: Normal GI:Palpation: negative Mass Pulsatile GI: Tenderness: Diffuse Skin: Decreased Turgur Musculoskeletal: Hip and Motor Deficit Psychiatric: Anxiety Mood Description: Anxious Affect: Anxious Speech Pattern: Clear and Appropriate Laboratory and Diagnostics 07/14/25 04:26 07/14/25 04:26 Labs: 07/11/25 18:10 Urine,Catheterized Urine Culture - Final Laboratory WBC 20.4 X10^3/uL (3.6-10.0) H 07/14/25 04:26 RBC 3.49 X10^6/uL (3.5-5.4) L 07/14/25 04:26 Hgb 11.0 g/dL (12.0-16.0) L 07/14/25 04:26 Hct 32.0 % (36.0-47.0) L 07/14/25 04:26 MCV 91.7 fL (80.0-100.0) 07/14/25 04: MCH 31.5 pg (27.0-34.0) 07/14/25 04: MCHC 34.3 g/dL (33.0-35.0) 07/14/25 04: RDW 12.8 % (11.6-16.5) 07/14/25 04: Plt Count 281 X10^3/uL (150.0-450.0) 07/14/25 04:26 Plt Count Comment Adequate (ADEQUATE) 07/13/25 04:42 MPV 7.7 fL (7.4-11.0) 07/14/25 04:26 Neut % (Auto) 86.6 % (42.0-75.0) H 07/14/25 04: Lymph % (Auto) 3.4 % (21.0-51.0) L 07/14/25 04:26 [place] % (Auto) 9.9 % (0.0-13.0) 07/14/25 04:26 Eos % (Auto) 0.0 % (0.9-2.9) L 07/14/25 04: Baso % (Auto) 0.1 % (0.2-1.0) L 07/14/25 04:26 Neut # (Auto) 17.6 x10^3/uL (2.2-4.8) H 07/14/25 04:26 Lymph # (Auto) 0.7 X10^3/uL (1.3-2.9) L 07/14/25 04:26 [place] # (Auto) 2.0 x10^3/uL (0.3-0.8) H 07/14/25 04:26 Eos # (Auto) 0.0 x10^3/uL (0.0-0.2) 07/14/25 04:26 Baso # (Auto) 0.0 X10^3/uL (0.0-0.1) 07/14/25 04:26 Absolute Nucleated RBC 0.0 /100WBC 07/14/25 04:26 Total Counted 100 07/13/25 04:42 Neutrophils % (Manual) 89 % (39-76) H 07/13/25 04:42 Lymphocytes % (Manual) 4 % (13-43) L 07/13/25 04:42 Monocytes % (Manual) 7 % (4-9) 07/13/25 04:42 Plt Morphology Comment Normal (NORMAL) 07/13/25 04:42 RBC Morphology Normal (NORMAL) 07/13/25 04:42 Sodium 138 mmol/L (136-145) 07/14/25 04:26 Corrected Sodium 139 mmol/L (136-145) 07/14/25 04:26 Potassium 3.7 mmol/L (3.5-5.1) 07/14/25 04:26 Chloride 105 mmol/L (98-107) 07/14/25 04:26 Carbon Dioxide 27.2 mmol/L (21-32) 07/14/25 04:26 BUN 26 mg/dL (7-18) H 07/14/25 04:26 Creatinine 0.62 mg/dL (0.55-1.02) 07/14/25 04:26 Est GFR (MDRD) Af Amer > 60 (>60) 07/14/25 04:26 Est GFR (MDRD) Non-Af > 60 (>60) 07/14/25 04:26 Glucose 131 mg/dL (65-99) H 07/14/25 04:26 Hemoglobin A1c 5.9 % 07/12/25 04:30 Lactic Acid 0.9 mmol/L (0.4-2.0) 07/13/25 08:10 Calcium 8.2 mg/dL (8.5-10.1) L 07/14/25 04:26 Corrected Calcium 9.3 mg/dL (8.5-10.1) 07/14/25 04:26 Magnesium 1.9 mg/dL (2.0-2.9) L 07/14/25 04:26 Total Bilirubin 0.60 mg/dL (0.2-1.0) 07/14/25 04:26 AST 34 Units/L (15-37) 07/14/25 04:26 ALT 22 Units/L (12-78) 07/14/25 04:26 Alkaline Phosphatase 51 Units/L (46-116) 07/14/25 04:26 Total Protein 5.9 g/dL (6.4-8.2) L 07/14/25 04:26 Albumin 2.6 g/dL (3.4-5.0) L 07/14/25 04:26 Globulin 3.3 g/dL (2.5-4.5) 07/14/25 04:26 Albumin/Globulin Ratio 0.8 Ratio (1.1-2.1) L 07/14/25 04:26 Amylase 201 Units/L (25-115) H 07/14/25 04:26 Lipase 71 Units/L (16-77) 07/14/25 04:26 Specimen Type Catherized urine 07/11/25 18:10 Urine Color Yellow (YELLOW) 07/11/25 18:10 Urine Appearance Hazy (CLEAR) 07/11/25 18:10 Urine pH 6.0 (5.0 - 8.0) 07/11/25 18:10 Ur Specific [place] 1.025 (1.000-1.030) 07/11/25 18:10 Urine Protein 2+ (NEGATIVE) 07/11/25 18:10 Urine Glucose (UA) Negative (NEGATIVE) 07/11/25 18:10 Urine Ketones 1+ (NEGATIVE) 07/11/25 18:10 Urine Blood 3+ (NEGATIVE) 07/11/25 18:10 Urine Nitrite Negative (NEGATIVE) 07/11/25 18:10 Urine Bilirubin Negative (NEGATIVE) 07/11/25 18:10 Urine Urobilinogen Normal (NORMAL) 07/11/25 18:10 Ur Leukocyte Esterase 2+ (NEGATIVE) 07/11/25 18:10 Urine RBC 0-2 /HPF (0-3) 07/11/25 18:10 Urine WBC 10-20 /HPF (0-5) A 07/11/25 18:10 Ur Squamous Epith Cells Negative /HPF (NEGATIVE) 07/11/25 18:10 Ur Renal Epithelial Cell Few /HPF (NEGATIVE) 07/11/25 18:10 Amorphous Sediment 2+ /HPF (NEGATIVE) 07/11/25 18:10 Urine Bacteria 1+ /HPF (NEGATIVE) 07/11/25 18:10 Coarse Granular Casts Few /HPF (NEGATIVE) 07/11/25 18:10 Ur Culture Indicated? Yes/culture set up 07/11/25 18:10 Assessment and Plan 1: Subsiding acute gallstone pancreatitis . same plan , on low-fat diet. Future cholecystectomy if the patient is medically cleared 2: Acute atrial fibrillation with rapid ventricular response. HTN and COPD . On anticoagulants. Problem Patient Problems: Patient Problems Constipation (Acute) K59.00 UTI (urinary tract infection) (Acute) N39.0 Pancreatitis (Acute) K85.90 Cholelithiasis (Acute) K80.20
[2025-07-14] MEDS: LOPRESSOR INJ 5 MG AMP IVP PRN (19:13)
[2025-07-14] MEDS: LANOXIN INJ IVP ONE (19:18)
[2025-07-14] MEDS: HALDOL INJ IM PRN (19:25)
[2025-07-14] MEDS: RESTORIL CAP 15 MG PO PRN (20:32)
[2025-07-14] MEDS: ARICEPT TAB 5 MG PO SCH (20:33)
[2025-07-15 04:41] LABS: MEAN PLATELET VOLUME 7.5 fL (7.4-11.0); RED CELL DISTRIBUTION WIDTH 12.8 % (11.6-16.5)
[2025-07-15 04:57] LABS: COR CA(FOR HYPOALB) 9.7 mg/dL (8.5-10.1); CREATININE 0.88 mg/dL (0.55-1.02); eGFR NON BLACK RACES > 60 (>60)
--- NOTE | 2025-07-15 05:42 | RAD ---
PROCEDURE: Acute Abdomen Series. HISTORY: Abdomen pain. TECHNIQUE: AP supine and upright abdomen with PA chest x-ray views. COMPARISON: 07/13/2025 KUB and 07/12/2025 chest x-ray. TECHNICAL QUALITY: Satisfactory. FINDINGS: Unchanged mild cardiomegaly. Some consolidation both lung bases consistent with pneumonia. No pneumoperitoneum. Gas and feces in the colon without distention. No obstruction. Small bowel gas mid abdomen could represent localized ileus. No abnormal calcifications. IMPRESSION: 1. Possible mild ileus. 2. Unchanged mild cardiomegaly. 3. Mild bilateral pneumonia. THIS IS AN ELECTRONICALLY VERIFIED FINAL REPORT 07/15/2025 5:39 AM - Electronically signed by Seymour Brito MD
--- NOTE | 2025-07-15 07:55 | RAD ---
EXAMINATION: CHEST, 1 VIEW HISTORY: AMS, low O2 sat; . COMPARISON STUDY: 07/12/2025 TECHNIQUE: One view FINDINGS: Heart size is borderline. Vascular congestion. Moderate right effusion with atelectasis. Small left effusion with atelectasis. Some degree of CHF is not excluded. No pneumothorax. Hilar and mediastinal structures and bony structures are unchanged. EKG leads overlie the chest. IMPRESSION: Borderline heart size with vascular congestion. Moderate right effusion and small left effusion with atelectasis. Follow-up recommended THIS IS AN ELECTRONICALLY VERIFIED FINAL REPORT 07/15/2025 7:52 AM - Electronically signed by Boyd Fowler MD
[2025-07-15] MEDS: LASIX IVP ONE (09:10)
[2025-07-15] MEDS: K-DUR TAB 20 MEQ PO ONE (09:10)
[2025-07-15] MEDS: LOPRESSOR TAB 25 MG PO ONE (09:10)
[2025-07-15] MEDS: VISTARIL PO PRN (10:53)
[2025-07-15] MEDS: BENADRYL INJ 50 MG VIAL IVP PRN (12:40)
--- NOTE | 2025-07-15 15:51 | DR.PROGNOT ---
HOSPITAL PROGRESS NOTE Progress Note for Day of: Progress Note Date: 07/15/25 Chief Complaint Chief Complaint: No significant abdominal pain today, no nausea or vomiting and tolerating diet well. Her heart rate and blood pressure are fairly controlled. She is still agitated and confused at times with some respiratory discomfort. Gallbladder ultrasound showed gallstones and sludge. MRCP showed no evidence of choledocholithiasis. White count still elevated 16.6 with hemoglobin 11, BUN 26, normal creatinine, serum amylase and lipase are normal Abdomen is soft with only mild diffuse tenderness, no rebound or rigidity... Past Medical Family Social History Past Med/Fam/Surg Hx: No changes since H&P Allergies: Allergies aspirin Allergy (Verified 07/11/25 18:41) Penicillins Allergy (Verified 07/11/25 16:02) Review Of Systems ROS: No change since H&P and Changes notes (describe) Vital Signs Vital Signs: Vital Signs Temperature 98.1 F Pulse Rate [Apical] 128 Pulse Rate [Apical] 97 Pulse Rate [Apical] 97 Pulse Rate [Apical] 86 Pulse Rate [Apical] 103 Pulse Rate [Apical] 105 Pulse Rate [Apical] 107 Pulse Rate 155 Respiratory Rate 34 Respiratory Rate 29 Respiratory Rate 36 Respiratory Rate 31 Respiratory Rate 24 Respiratory Rate 23 Respiratory Rate 15 Respiratory Rate 23 Blood Pressure [Left Arm] 166/77 Blood Pressure [Left Arm] 132/69 Blood Pressure [Left Arm] 121/61 Blood Pressure [Left Arm] 173/74 Blood Pressure [Left Arm] 138/60 Blood Pressure [Left Arm] 135/65 Blood Pressure 166/77 Blood Pressure 166/77 O2 Sat by Pulse Oximetry 94 O2 Sat by Pulse Oximetry 96 O2 Sat by Pulse Oximetry 97 O2 Sat by Pulse Oximetry 97 O2 Sat by Pulse Oximetry 100 O2 Sat by Pulse Oximetry 97 O2 Sat by Pulse Oximetry 97 Physical Exam Oriented: Person Eyes: Normal Ear: Normal Nose: Normal Throat: Dry : Frequency GI:Auscultation: Normal GI:Palpation: negative Mass Pulsatile GI: Tenderness: Diffuse Skin: Decreased Turgur Musculoskeletal: Hip and Motor Deficit Psychiatric: Anxiety Mood Description: Anxious Affect: Anxious Speech Pattern: Clear Laboratory and Diagnostics 07/15/25 04:18 07/15/25 04:18 Labs: 07/13/25 08:22 Blood Blood Culture - Preliminary 07/13/25 08:10 Blood Blood Culture - Preliminary 07/11/25 18:10 Urine,Catheterized Urine Culture - Final Laboratory WBC 16.6 X10^3/uL (3.6-10.0) H 07/15/25 04:18 RBC 3.36 X10^6/uL (3.5-5.4) L 07/15/25 04:18 Hgb 10.7 g/dL (12.0-16.0) L 07/15/25 04:18 Hct 31.2 % (36.0-47.0) L 07/15/25 04:18 MCV 92.7 fL (80.0-100.0) 07/15/25 04:18 MCH 31.9 pg (27.0-34.0) 07/15/25 04:18 MCHC 34.4 g/dL (33.0-35.0) 07/15/25 04:18 RDW 12.8 % (11.6-16.5) 07/15/25 04:18 Plt Count 283 X10^3/uL (150.0-450.0) 07/15/25 04:18 Plt Count Comment Adequate (ADEQUATE) 07/13/25 04:42 MPV 7.5 fL (7.4-11.0) 07/15/25 04:18 Neut % (Auto) 81.4 % (42.0-75.0) H 07/15/25 04:18 Lymph % (Auto) 7.5 % (21.0-51.0) L 07/15/25 04:18 [place] % (Auto) 10.8 % (0.0-13.0) 07/15/25 04:18 Eos % (Auto) 0.1 % (0.9-2.9) L 07/15/25 04:18 Baso % (Auto) 0.2 % (0.2-1.0) 07/15/25 04:18 Neut # (Auto) 13.5 x10^3/uL (2.2-4.8) H 07/15/25 04:18 Lymph # (Auto) 1.3 X10^3/uL (1.3-2.9) 07/15/25 04:18 [place] # (Auto) 1.8 x10^3/uL (0.3-0.8) H 07/15/25 04:18 Eos # (Auto) 0.0 x10^3/uL (0.0-0.2) 07/15/25 04:18 Baso # (Auto) 0.0 X10^3/uL (0.0-0.1) 07/15/25 04:18 Absolute Nucleated RBC 0.1 /100WBC 07/15/25 04:18 Total Counted 100 07/13/25 04:42 Neutrophils % (Manual) 89 % (39-76) H 07/13/25 04:42 Lymphocytes % (Manual) 4 % (13-43) L 07/13/25 04:42 Monocytes % (Manual) 7 % (4-9) 07/13/25 04:42 Plt Morphology Comment Normal (NORMAL) 07/13/25 04:42 RBC Morphology Normal (NORMAL) 07/13/25 04:42 Sodium 141 mmol/L (136-145) 07/15/25 04:18 Corrected Sodium TNP 07/15/25 04:18 Potassium 4.2 mmol/L (3.5-5.1) 07/15/25 04:18 Chloride 106 mmol/L (98-107) 07/15/25 04:18 Carbon Dioxide 30.0 mmol/L (21-32) 07/15/25 04:18 BUN 29 mg/dL (7-18) H 07/15/25 04:18 Creatinine 0.88 mg/dL (0.55-1.02) 07/15/25 04:18 Est GFR (MDRD) Af Amer > 60 (>60) 07/15/25 04:18 Est GFR (MDRD) Non-Af > 60 (>60) 07/15/25 04:18 Glucose 104 mg/dL (65-99) H 07/15/25 04:18 Hemoglobin A1c 5.9 % 07/12/25 04:30 Lactic Acid 0.9 mmol/L (0.4-2.0) 07/13/25 08:10 Calcium 8.4 mg/dL (8.5-10.1) L 07/15/25 04:18 Corrected Calcium 9.7 mg/dL (8.5-10.1) 07/15/25 04:18 Magnesium 2.3 mg/dL (2.0-2.9) 07/15/25 04:18 Total Bilirubin 0.50 mg/dL (0.2-1.0) 07/15/25 04:18 AST 25 Units/L (15-37) 07/15/25 04:18 ALT 21 Units/L (12-78) 07/15/25 04:18 Alkaline Phosphatase 49 Units/L (46-116) 07/15/25 04:18 Total Protein 5.8 g/dL (6.4-8.2) L 07/15/25 04:18 Albumin 2.4 g/dL (3.4-5.0) L 07/15/25 04:18 Globulin 3.4 g/dL (2.5-4.5) 07/15/25 04:18 Albumin/Globulin Ratio 0.7 Ratio (1.1-2.1) L 07/15/25 04:18 Amylase 66 Units/L (25-115) 07/15/25 04:18 Lipase 29 Units/L (16-77) 07/15/25 04:18 Specimen Type Catherized urine 07/11/25 18:10 Urine Color Yellow (YELLOW) 07/11/25 18:10 Urine Appearance Hazy (CLEAR) 07/11/25 18:10 Urine pH 6.0 (5.0 - 8.0) 07/11/25 18:10 Ur Specific [place] 1.025 (1.000-1.030) 07/11/25 18:10 Urine Protein 2+ (NEGATIVE) 07/11/25 18:10 Urine Glucose (UA) Negative (NEGATIVE) 07/11/25 18:10 Urine Ketones 1+ (NEGATIVE) 07/11/25 18:10 Urine Blood 3+ (NEGATIVE) 07/11/25 18:10 Urine Nitrite Negative (NEGATIVE) 07/11/25 18:10 Urine Bilirubin Negative (NEGATIVE) 07/11/25 18:10 Urine Urobilinogen Normal (NORMAL) 07/11/25 18:10 Ur Leukocyte Esterase 2+ (NEGATIVE) 07/11/25 18:10 Urine RBC 0-2 /HPF (0-3) 07/11/25 18:10 Urine WBC 10-20 /HPF (0-5) A 07/11/25 18:10 Ur Squamous Epith Cells Negative /HPF (NEGATIVE) 07/11/25 18:10 Ur Renal Epithelial Cell Few /HPF (NEGATIVE) 07/11/25 18:10 Amorphous Sediment 2+ /HPF (NEGATIVE) 07/11/25 18:10 Urine Bacteria 1+ /HPF (NEGATIVE) 07/11/25 18:10 Coarse Granular Casts Few /HPF (NEGATIVE) 07/11/25 18:10 Ur Culture Indicated? Yes/culture set up 07/11/25 18:10 Digoxin 1.59 ng/mL (0.9-2) 07/15/25 04:18 Assessment and Plan 1: Subsiding acute gallstone pancreatitis . same plan , on low-fat diet. Future cholecystectomy if the patient is medically cleared. Surgical stress will aggravate her current medical issues. Will observe for now 2: Acute atrial fibrillation with rapid ventricular response. HTN and COPD . On anticoagulants. Problem Patient Problems: Patient Problems Constipation (Acute) K59.00 UTI (urinary tract infection) (Acute) N39.0 Pancreatitis (Acute) K85.90 Cholelithiasis (Acute) K80.20
[2025-07-15] MEDS: ATIVAN INJ 2 MG VIAL IVP ONE (18:50)
[2025-07-15] MEDS: ATIVAN 20 MG/10 ML VIAL ONE (19:06)
[2025-07-16 05:17] LABS: MEAN PLATELET VOLUME 8.0 fL (7.4-11.0); RED CELL DISTRIBUTION WIDTH 12.9 % (11.6-16.5)
[2025-07-16 05:21] LABS: COR CA(FOR HYPOALB) 9.4 mg/dL (8.5-10.1); COR NA(FOR HYPERGLY) 143 mmol/L (136-145); CREATININE 0.73 mg/dL (0.55-1.02); eGFR NON BLACK RACES > 60 (>60)
[2025-07-16 05:37] LABS: PLATELET MORPHOLOGY COMMENT NORMAL (NORMAL)
[2025-07-16] MEDS ORDERED: CONSULT PHARMACY - POTASSIUM & MAGNESIUM XX SCH ×2 (06:00→07:00)
[2025-07-16 08:54] VITALS: BMI 21.9
--- NOTE | 2025-07-16 09:57 | CT ---
EXAMINATION: BRAIN W/O CON HISTORY: AMS; COMPARISON: None. .br.br Images reviewed in the axial imaging plane with reformatted sagittal and coronal images.The above CT scan was done with automated exposure control and the mA and kV was adjusted to obtain quality images according to patient size. FINDINGS: No evidence of acute intracranial hemorrhage, mass effect, or midline shift. Ventricles are normal size and shape. Scattered areas of decreased density deep white matter adjacent to the lateral ventricles and centrum semiovale regions bilaterally without associated mass effect. Consider chronic ischemic white matter changes from small vessel disease or other cause of gliosis. Calvarium appears intact. IMPRESSION: No acute intracranial hemorrhage or mass effect. Probable chronic brain parenchymal changes as described above. Recommend further evaluation with an MRI of the brain if this is of continued clinical concern. THIS IS AN ELECTRONICALLY VERIFIED FINAL REPORT 07/16/2025 9:54 AM - Electronically signed by Nichol Hunt MD
--- NOTE | 2025-07-16 10:32 | RAD ---
EXAMINATION: CHEST, 1 VIEW HISTORY: short of breath; . COMPARISON STUDY: 07/15/2025 TECHNIQUE: One view FINDINGS: For borderline heart size. There is CHF. Bilateral effusions. Atelectasis in the lung bases. No pneumothorax. Hilar and mediastinal structures and bony structures unchanged. EKG leads overlie the chest IMPRESSION: CHF with bilateral effusions which is worse from the prior study. Follow-up recommended THIS IS AN ELECTRONICALLY VERIFIED FINAL REPORT 07/16/2025 10:26 AM - Electronically signed by Boyd Fowler MD
[2025-07-16 13:10] LABS: INR 1.16 (0.8-1.3)
[2025-07-16] MEDS: HEPARIN SODIUM INJ 5000 UNITS IVP ONE ×2 (14:00→21:59)
[2025-07-16] MEDS: HEPARIN SODIUM IN D5W 25,000 UNITS/500 ML BAG IV PRN (14:05)
--- NOTE | 2025-07-16 14:52 | DR.CONSULT ---
CONSULT Consultation for Day of: Date: 07/16/25 Chief Complaint Chief Complaint: abd pain/GB - went into afib Allergies Allergies Allergy/AdvReac Type Severity Reaction Status Date / Time aspirin Allergy Verified 07/11/25 18:41 Penicillins Allergy Verified 07/11/25 16:02 History of Present Illness History of Present Illness: 85 yo- has htn/dementia- admitted for abd pain/gb concerns- went into rafib/sign sob- being put on heparin drip/on ccb/bb Past Medical History Past Medical History: Dementia and Hypertension Past Surgical History Surgical History: Tonsillectomy Family History Family Medical History: Hypertension Social History Does patient currently use any type of tobacco product: No Have you used tobacco products in the last 12 months: No Type of Tobacco Use: None Does any household member use tobacco: No Alcohol Use: None Medications Home Medications: aspirin Allergy (Verified 07/11/25 18:41) Penicillins Allergy (Verified 07/11/25 16:02) CONTINUE taking the following medications donepezil 5 mg tablet 5 mg PO QDAY 07/11/25 [History] lisinopril 10 mg tablet 10 mg PO BID 07/11/25 [History] meloxicam 15 mg tablet 15 mg PO QDAY 07/11/25 [History] Physical Exam Vital Signs: Vital Signs Temperature 98.2 F Pulse Rate [Apical] 95 Pulse Rate [Apical] 97 Pulse Rate [Apical] 102 Pulse Rate [Apical] 97 Pulse Rate [Apical] 94 Respiratory Rate 22 Respiratory Rate 21 Respiratory Rate 22 Respiratory Rate 18 Respiratory Rate 15 Blood Pressure [Left Femoral 128/64 Artery] Blood Pressure [Left Femoral 156/67 Artery] Blood Pressure [Left Femoral 145/60 Artery] Blood Pressure [Left Femoral 123/62 Artery] Blood Pressure [Left Femoral 135/60 Artery] O2 Sat by Pulse Oximetry 96 O2 Sat by Pulse Oximetry 96 O2 Sat by Pulse Oximetry 95 O2 Sat by Pulse Oximetry 97 O2 Sat by Pulse Oximetry 97 sob few cracklles B , decreased bs both bases irreg irreg 2/6 zahra mild edema labs: wbc 21k hct 31 plt 317 cr 0.73 tsh 1.5 cxr: chf b effusions echo: lvh,mild B pleural effusions effusions Plan (1) Pancreatitis: Status: Acute (2) Cholelithiasis: Status: Acute (3) COPD (chronic obstructive pulmonary disease): Status: Acute (4) Atrial fibrillation: Status: Acute Plan: push ccb/bb for rate control- heparin iv for stroke prevention- follow (5) CHF (congestive heart failure): Status: Acute Plan: diuresis/bp control (6) Pleural effusion: Status: Acute Plan: diuresis
[2025-07-16] MEDS: LOPRESSOR TAB 25 MG PO SCH (17:58)
[2025-07-16] MEDS: K-DUR TAB 20 MEQ PO ONE (18:00)
[2025-07-16] MEDS: LASIX IVP SCH (18:05)
[2025-07-16 21:18] LABS: INR 1.17 (0.8-1.3)
[2025-07-16] MEDS ORDERED: HEPARIN SODIUM INJ 5000 UNITS ONE (21:51)
[2025-07-17 05:08] LABS: INR 1.21 (0.8-1.3)
[2025-07-17 06:38] LABS: MEAN PLATELET VOLUME 7.8 fL (7.4-11.0); RED CELL DISTRIBUTION WIDTH 12.6 % (11.6-16.5)
[2025-07-17 06:41] LABS: COR CA(FOR HYPOALB) 9.5 mg/dL (8.5-10.1); COR NA(FOR HYPERGLY) 142 mmol/L (136-145); CREATININE 0.84 mg/dL (0.55-1.02); eGFR NON BLACK RACES > 60 (>60)
[2025-07-17] MEDS ORDERED: CONSULT PHARMACY - POTASSIUM & MAGNESIUM XX SCH (07:00)
--- NOTE | 2025-07-17 07:00 | RAD ---
EXAMINATION: CHEST, 1 VIEW HISTORY: CHF ; DEMENTIA, HTN SX: TONSILLECTOMY . COMPARISON STUDY: 07/16/2025 TECHNIQUE: One view FINDINGS: Borderline heart size. Decrease in bilateral opacities. No pneumothorax, new infiltrate or other change noted. EKG leads overlie the chest. IMPRESSION: Decrease in bilateral opacities. Follow-up recommended THIS IS AN ELECTRONICALLY VERIFIED FINAL REPORT 07/17/2025 6:57 AM - Electronically signed by Boyd Fowler MD
[2025-07-17] MEDS: K-DUR TAB 20 MEQ PO SCH (10:24)
[2025-07-17 11:44] LABS: INR 1.18 (0.8-1.3)
--- NOTE | 2025-07-17 14:16 | NOTE.SOAP ---
Soap Note Note for Day of Date of Exam: 07/17/25 Subjective Data Subjective Data: confused- knows year/no date/unclear of where she is- staes no sob though breathing rate up-still in afib w good rate control Objective Data Objective Data: lungs: decreased bs bases irreg irreg 2/6 zahra mild edema LABS: 17k wbc hct 30 ptt 147-47 ( heparin increased) k 3.0( given K) cr 0.84 Assessment Assessment: afib/pancreatitis/htn/dementia Plan Plan: cont heparin iv but if no surgery being contemplated- low dose eliquis- add po cardiazem to wean down iv per hr response- will add amiodorone po
[2025-07-17] MEDS: CARDIZEM TAB 30 MG PLAIN PO SCH (15:51)
[2025-07-17] MEDS: CORDARONE TAB 200 MG PO SCH (17:45)
[2025-07-17] MEDS: HEPARIN SODIUM INJ 5000 UNITS IVP ONE (18:18)
[2025-07-17] MEDS: MILK OF MAGNESIA PO SCH (20:56)
[2025-07-17] MEDS: INVanz INJ 1 GRAM VIAL 1 G in NS 100 ML IV 100 ML IV SCH (21:49)
[2025-07-18 00:52] LABS: INR 1.21 (0.8-1.3)
[2025-07-18 07:06] LABS: RED CELL DISTRIBUTION WIDTH 12.8 % (11.6-16.5)
[2025-07-18 07:10] LABS: MEAN PLATELET VOLUME 7.1 fL (7.4-11.0)
[2025-07-18 07:26] LABS: INR 1.21 (0.8-1.3)
--- NOTE | 2025-07-18 07:36 | RAD ---
EXAM: KUB HISTORY: Abdominal pain COMPARISON: 07/14/2025 FINDINGS: Abdominal gas pattern is nonspecific and nonobstructive. No abnormal masses are identified. Rounded calcification to the right of T11 could be within the gallbladder or right kidney. It is unchanged when compared with prior examination. Regional skeleton is intact. IMPRESSION: Nonspecific, nonobstructive bowel gas pattern Stable rounded calcification just to the right of T11 could be within the gallbladder or right kidney. THIS IS AN ELECTRONICALLY VERIFIED FINAL REPORT 07/18/2025 7:32 AM - Electronically signed by Ted Lao MD
[2025-07-18 07:51] LABS: COR CA(FOR HYPOALB) 9.8 mg/dL (8.5-10.1); COR NA(FOR HYPERGLY) 143 mmol/L (136-145); CREATININE 1.10 mg/dL (0.55-1.02); eGFR NON BLACK RACES 50 (>60)
--- NOTE | 2025-07-18 10:01 | CT ---
EXAMINATION: CHEST W/O CON HISTORY: short of breath, possible pulmonary edema ; COMPARISON: None. TECHNIQUE: Contiguous noncontrast axial CT images of the thorax. Images reviewed in the axial imaging plane with reformatted sagittal and coronal images.The above CT scan was done with automated exposure control and the mA and kV was adjusted to obtain quality images according to patient size. FINDINGS: The lungs are expanded. Large low-density right pleural effusion in the dependent posterior pleural space and mild low-density left pleural effusion in the dependent posterior pleural space. Areas of pulmonary consolidation probable compressive atelectasis both lower lobes. Coarse alveolar infiltrates scattered in both upper lobes, right middle lobe, lingula segment left upper lobe. Pulmonary vascular congestion. Details of the mediastinum/vascular structures limited since intravenous contrast was not used. Mild multichamber cardiac enlargement. Coronary artery calcifications. Enlarged main pulmonary outflow trunk 3.4 cm diameter suspicious for pulmonary arterial hypertension. No evidence of thoracic aortic aneurysm. Scattered arterial vascular calcifications aorta and branch vessels. No pericardial effusion. 2.2 x 1.2 cm lymph node subcarinal space. Images through the upper abdomen demonstrate cholelithiasis. Ascites. Moderate thoracic spondylosis. IMPRESSION: Bilateral pleural effusions with probable compressive atelectatic changes of the lower lobes. Scattered pulmonary infiltrates with pulmonary vascular congestion. Cardiomegaly, coronary artery calcifications. Enlarged main pulmonary outflow trunk. THIS IS AN ELECTRONICALLY VERIFIED FINAL REPORT 07/18/2025 9:57 AM - Electronically signed by Nichol Hunt MD
[2025-07-18] MEDS: LASIX IVP ONE ×2 (11:00→20:02)
[2025-07-18 11:26] LABS: BLOOD/HEMOGLOBIN,URINE 3+ (NEGATIVE); LEUKOCYTE ESTERASE ,URINE NEGATIVE (NEGATIVE); NITRITES,URINE NEGATIVE (NEGATIVE)
[2025-07-18 11:47] LABS: APPEARANCE,URINE CLEAR (CLEAR); SQUAMOUS EPITHELIAL CELL,UR RARE /HPF (NEGATIVE)
--- NOTE | 2025-07-18 11:56 | CT ---
EXAM: CT ABDOMEN AND PELVIS WITHOUT CONTRAST HISTORY: abd pain; COMPARISON: MRI July 14, 2025. TECHNIQUE: Axial CT images were obtained through the abdomen and pelvis without contrast. Coronal reformatted images were included. All CT scans at this facility use dose modulation, iterative reconstruction, and/or weight based dosing when appropriate to reduce radiation dose to as low as reasonably achievable. FINDINGS: Please note that without the use of intravenous contrast, evaluation of organ parenchyma is limited. LOWER THORAX: Moderate right and left pleural effusions noted, larger on the right. Patchy areas of airspace disease in the lung bases bilaterally. ABDOMEN: LIVER: Normal GALLBLADDER: Gallstones SPLEEN: Normal PANCREAS: Significant amount of peripancreatic edema. Large cystic fluid collection anterior to the pancreatic body measures at least 12.2 x 6.0 cm, increasing in size since previous MRI of July 14 2025. 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 Areas of pancreatic necrosis are suspected within the pancreatic body. There is significant increase in the amount of peripancreatic fluid particularly anterior to the pancreas. Exam is somewhat limited without intravenous contrast. Bilateral pleural effusions with multifocal areas of bibasilar airspace consolidation. Gallstones THIS IS AN ELECTRONICALLY VERIFIED FINAL REPORT 07/18/2025 11:44 AM - Electronically signed by Wan Beck MD
[2025-07-18] MEDS: HEPARIN SODIUM INJ 5000 UNITS IVP ONE (16:02)
[2025-07-18] MEDS ORDERED: CARDIZEM TAB 30 MG PLAIN PO SCH (17:00)
[2025-07-18] MEDS: CARDIZEM TAB 30 MG PLAIN PO SCH (19:40)
[2025-07-18] MEDS: CORDARONE TAB 200 MG PO SCH (19:41)
[2025-07-18] MEDS: K-DUR TAB 20 MEQ PO SCH (20:03)
[2025-07-19 06:43] LABS: MEAN PLATELET VOLUME 6.6 fL (7.4-11.0); RED CELL DISTRIBUTION WIDTH 12.7 % (11.6-16.5)
[2025-07-19 06:55] LABS: COR CA(FOR HYPOALB) 9.5 mg/dL (8.5-10.1); COR NA(FOR HYPERGLY) 142 mmol/L (136-145); CREATININE 1.06 mg/dL (0.55-1.02); eGFR NON BLACK RACES 52 (>60)
[2025-07-19] MEDS: HEPARIN SODIUM INJ 5000 UNITS ONE (07:44)
[2025-07-19] MEDS ORDERED: CONSULT PHARMACY - POTASSIUM & MAGNESIUM XX SCH (08:00)
[2025-07-19] MEDS: PEPCID 20 MG VIAL 20 MG in NS 50 ML IV 50 ML IV SCH (08:31)
[2025-07-19] MEDS: K-DUR TAB 20 MEQ PO ONE (08:31)
[2025-07-19] MEDS: MAG-OX TAB PO SCH (08:31)
[2025-07-19] MEDS: ELIQUIS PO SCH (10:20)
--- NOTE | 2025-07-19 12:36 | NOTE.SOAP ---
Soap Note Note for Day of Date of Exam: 07/19/25 Subjective Data Subjective Data: Still in Afib. family and nurse at bedside. no acute events overnight. still anemic with worsened hypokalemia. Objective Data Objective Data: Thin, elderly female in NAD. Irregularly, irregular. Diminished breath sounds. Abdomen mildly tender with slow sounds. Pleasantly confused. Assessment Assessment: Atrial fibrillation Gallstone pancreatitis Dementia Anemia of CKD3a Plan Plan: Switch to PO Eliquis 2.5 BID. Stop heparin drip. Continue other meds. Monitor labs. Replace K+.
[2025-07-19] MEDS: K-DUR TAB 20 MEQ PO SCH (21:30)
[2025-07-20 05:02] LABS: MEAN PLATELET VOLUME 7.3 fL (7.4-11.0); RED CELL DISTRIBUTION WIDTH 13.0 % (11.6-16.5)
[2025-07-20 05:15] LABS: COR CA(FOR HYPOALB) 10.1 mg/dL (8.5-10.1); COR NA(FOR HYPERGLY) 141.0 mmol/L (136-145); CREATININE 1.59 mg/dL (0.55-1.02); eGFR NON BLACK RACES 33.0 (>60)
[2025-07-20 05:24] LABS: PLATELET MORPHOLOGY COMMENT NORMAL (NORMAL)
[2025-07-20] MEDS ORDERED: ROBITUSSIN DM PO PRN (09:00)
[2025-07-20] MEDS: NYSTATIN SUSP PO SCH (09:12)
[2025-07-20] MEDS: TUSSIONEX PENNKINETIC SUSP PO PRN (09:12)
--- NOTE | 2025-07-20 15:36 | NOTE.SOAP ---
Soap Note Note for Day of Date of Exam: 07/20/25 Subjective Data Subjective Data: WBCs up. K+ normal. SCr up. No acute events overnight. Seen with daughter and nurse at bedside. Objective Data Objective Data: Thin, elderly female in no acute distress. Pleasantly confused and hard of hearing. Heart irregularly, irregular. Lungs diminished at the bases but clear today. Bowel sounds are present with diffuse, mild tenderness to light palpation. No swelling of her extremities. Assessment Assessment: Atrial fibrillation Gallstone pancreatitis Dementia Anemia of CKD3a Plan Plan: No changes today. Continue incentive spirometry. Cardiology back tomorrow. Guarded prognosis. Will monitor for worsening signs/symptoms of sepsis.
[2025-07-21 05:16] LABS: COR CA(FOR HYPOALB) 10.2 mg/dL (8.5-10.1); CREATININE 1.28 mg/dL (0.55-1.02); eGFR NON BLACK RACES 42 (>60)
[2025-07-21 05:21] LABS: MEAN PLATELET VOLUME 7.1 fL (7.4-11.0); RED CELL DISTRIBUTION WIDTH 12.7 % (11.6-16.5)
--- NOTE | 2025-07-21 08:19 | EKG ---
Test Reason : afib/on amio- ?qt Blood Pressure : */* mmHG Vent. Rate : 84 BPM Atrial Rate : * BPM P-R Int : * ms QRS Dur : 90 ms QT Int : 354 ms P-R-T Axes : * -23 43 degrees QTc Int : 418 ms Atrial fibrillation Minimal voltage criteria for LVH, may be normal variant ( R in aVL ) Abnormal ECG When compared with ECG of 14-JUL-2025 08:40, No significant change was found Confirmed by Dylan Argueta MD ([id number]) on 07/22/2025 7:29:02 AM Referred By: Confirmed By: Dylan Argueta MD
[2025-07-21] MEDS: LOPRESSOR TAB 50 MG PO SCH (09:16)
--- NOTE | 2025-07-21 09:46 | NOTE.SOAP ---
Soap Note Note for Day of Date of Exam: 07/21/25 Subjective Data Subjective Data: poor po- sob much improved- minimal abd complaints Objective Data Objective Data: still in afib- hr 90s-bp 130s- clear lungs with decreased bs bases irreg irreg minimal edema ekg: qt ok/afib Assessment Assessment: pancreatitis/afib Plan Plan: push bb/change to bid- increase amio /cont doac- will consider cv in few weeks after amio load/stays in afib
[2025-07-21] MEDS: BUTT CREAM (COMPOUND) TOP PRN (11:41)
--- NOTE | 2025-07-21 17:00 | RAD ---
EXAM: CHEST, 1 VIEW HISTORY: sob ; COMPARISON: 07/17/2025 TECHNIQUE: AP FINDINGS: Stable cardiac silhouette. Layering pleural effusions and bibasilar opacities are slightly decreased from comparison. No visible pneumothorax. IMPRESSION: Mild decreased layering pleural effusions and bibasilar atelectasis/infiltrates. THIS IS AN ELECTRONICALLY VERIFIED FINAL REPORT 07/21/2025 4:57 PM - Electronically signed by Wan Lopez MD
[2025-07-21] MEDS: CORDARONE TAB 200 MG PO SCH (17:14)
[2025-07-22 05:04] LABS: MEAN PLATELET VOLUME 7.0 fL (7.4-11.0); RED CELL DISTRIBUTION WIDTH 12.7 % (11.6-16.5)
[2025-07-22 05:16] LABS: COR CA(FOR HYPOALB) 10.1 mg/dL (8.5-10.1); COR NA(FOR HYPERGLY) 144.0 mmol/L (136-145); CREATININE 1.14 mg/dL (0.55-1.02); eGFR NON BLACK RACES 48.0 (>60)
[2025-07-23 05:47] LABS: MEAN PLATELET VOLUME 6.8 fL (7.4-11.0); RED CELL DISTRIBUTION WIDTH 13.3 % (11.6-16.5)
[2025-07-23 06:05] LABS: COR CA(FOR HYPOALB) 10.2 mg/dL (8.5-10.1); CREATININE 1.02 mg/dL (0.55-1.02); eGFR NON BLACK RACES 55 (>60)
[2025-07-23] MEDS ORDERED: NORCO 7.5/325 MG TAB PO PRN (08:22)
[2025-07-23 08:36] VITALS: BP 142/61; PULSE 79; RESP 20; TEMP 97.4; O2SAT 95
== END 2025-07-23 13:25 | DRG 439 ==
LOC: ER 15:54 → MED/SURG 20:21 → ICU 07-14 05:35 → MED/SURG 07-20 17:31
PROVIDERS: ADMIT Surgery; ATTEND Internal Medicine
DX: I50.9 Heart failure, unspecified; R41.82 Altered mental status, unspecified; M19.90 Unspecified osteoarthritis, unspecified site; I48.91 Unspecified atrial fibrillation; Z58.89 Other problems related to physical environment; N39.0 Urinary tract infection, site not specified; D63.1 Anemia in chronic kidney disease; R00.0 Tachycardia, unspecified; Z65.8 Other specified problems related to psychosocial circumstances; E86.0 Dehydration; R11.2 Nausea with vomiting, unspecified; F03.911 Unspecified dementia, unspecified severity, with agitation; Z78.1 Physical restraint status; R94.31 Abnormal electrocardiogram [ECG] [EKG]; Z66 Do not resuscitate; R26.89 Other abnormalities of gait and mobility; F05 Delirium due to known physiological condition; R79.1 Abnormal coagulation profile; K80.80 Other cholelithiasis without obstruction; Z60.8 Other problems related to social environment; E87.6 Hypokalemia; R06.02 Shortness of breath; R19.7 Diarrhea, unspecified; I16.0 Hypertensive urgency; N18.31 Chronic kidney disease, stage 3a; F01.511 Vascular dementia, unspecified severity, with agitation; R10.84 Generalized abdominal pain; K85.10 Biliary acute pancreatitis without necrosis or infection; K56.41 Fecal impaction; I13.0 Hypertensive heart and chronic kidney disease with heart failure and stage 1 through stage 4 chronic kidney disease, or unspecified chronic kidney disease; J90 Pleural effusion, not elsewhere classified; J44.9 Chronic obstructive pulmonary disease, unspecified